=== PATIENT | male | born 1965 | race Caucasian/White ===

== ENCOUNTER 2017-05-04 10:30 | Emergency (ER) | payer OTHER ==
[2017-05-04 10:44] VITALS: BP 128/89; PULSE 67; TEMP 98.1; BMI 27.8
[2017-05-04] MEDS ORDERED: BACITRACIN 15 GM TUBE TOPICAL OINTMENT TP ONE (11:04)
--- NOTE | 2017-05-04 11:06 | PDOC ---
History of Present Illness - General Chief Complaint: Injury Stated Complaint: RT FINGER LACERATION Time Seen by Provider: 05/04/17 10:45 History Source: Patient Exam Limitations: No Limitations - History of Present Illness Initial Comments: 05/04/17 14:26 51 yr male with laceration to the right index finger. Pt was using a saw at work and cut the finger. bleeding controlled. Tetanus is UTD less than 10 yrs. Occurred: reports: just prior to arrival Upper Extremity Pain Location: left: 2nd finger Past History - Past Medical History Allergies/Adverse Reactions: Allergies Allergy/AdvReac Type Severity Reaction Status Date / Time No Known Allergies Allergy Verified 05/04/17 10:39 Home Medications: Ambulatory Orders NK [No Known Home Medication] 05/04/17 COPD: No Psychiatric Problems: Yes (anxiety) - Surgical History Abdominal Surgery: (benign groin lymph node removal) - Suicide/Smoking/Psychosocial Hx Smoking History: Never smoked Information on smoking cessation initiated: No Hx Alcohol Use: No Drug/Substance Use Hx: No Substance Use Type: None *Physical Exam - Vital Signs Last Vital Signs Temp Pulse Resp BP Pulse Ox 98.1 F 67 18 128/89 99 05/04/17 10:36 05/04/17 10:36 05/04/17 10:36 05/04/17 10:36 05/04/17 10:36 - Physical Exam General Appearance: Yes: Nourished, Appropriately Dressed HEENT: positive: EOMI, SARAH Musculoskeletal: positive: Normal Inspection Extremity: positive: Normal Capillary Refill, Normal Range of Motion, Other ( right index finger wtih 0.5cm superficial laceration across the PIP joint, no active bleeding , nv intact , tendon intact, ligament intact). negative: Tender Neurologic: positive: Normal Response, Motor Strength 5/5 Procedures - Laceration/Wound Repair Left Dorsal 2nd digit Wound Length: to 2.5 cm (0.5cm superficial) Wound's Depth, Shape: superficial Irrigated w/ Saline: Yes Betadine Prep: Yes Wound Repaired With: Dermabond (splint placed, superficial wound no active bleeding ) Medical Decision Making - Medical Decision Making 05/04/17 14:29 cc: finger laceration left index at work nv intact FROM no bleeding now will clean and place dermabond glue and finger splint pt agrees with the plan all questions asked and answered *DC/Admit/Observation/Transfer Diagnosis at time of Disposition: Finger laceration Qualifiers: Encounter type: initial encounter Finger: index finger Damage to nail status: without damage Foreign body presence: without foreign body Laterality: right Qualified Code(s): S61.210A - Laceration without foreign body of right index finger without damage to nail, initial encounter - Discharge Dispostion Disposition: HOME Condition at time of disposition: Good - Referrals - Patient Instructions Printed Discharge Instructions: DI for Laceration Repair With Dermabond Additional Instructions: keep clean and dry use the splint for 2-3 days for 24hrs a day - Post Discharge Activity
== END 2017-05-04 11:34 | disposition home or self-care (01) ==
LOC: JERFT 10:30
PROC: 0HQGXZZ Repair Left Hand Skin, External Approach (ICD-10-PCS; principal; 2017-05-04)
PROC: 2W3KX1Z Immobilization of Left Finger using Splint (ICD-10-PCS; 2017-05-04)
DX: S61.210A Laceration without foreign body of right index finger without damage to nail, initial encounter (principal); W27.0XXA Contact with workbench tool, initial encounter; Y93.89 Activity, other specified; Y92.69 Other specified industrial and construction area as the place of occurrence of the external cause; Y99.0 Civilian activity done for income or pay
CPT/HCPCS: 99281-25